=== PATIENT | female | born 1960 | race Caucasian/White ===

== ENCOUNTER 2019-08-26 17:56 | Emergency (ER) | payer MEDICARE ==
[2019-08-26 18:19] VITALS: O2SAT 98
[2019-08-26] MEDS ORDERED: Sodium Chloride 0.9% 1000 ML 1,000 ML IV STA (18:54)
[2019-08-26] MEDS ORDERED: BENADRYL 50 MG/ML IV ONE (18:54)
[2019-08-26] MEDS ORDERED: MORPHINE SULFATE 2 MG INJ IV ONE (18:54)
[2019-08-26] MEDS ORDERED: BENADRYL 50 MG/ML ONE (19:23)
[2019-08-26] MEDS ORDERED: Sodium Chloride 0.9% 1000 ML 1,000 ML ONE (19:23)
[2019-08-26] MEDS ORDERED: MORPHINE SULFATE 2 MG INJ ONE (19:23)
[2019-08-26] MEDS ORDERED: DUONEB 0.5-3 MG/3 ml Neb IH ONE ×2 (19:30→20:57)
--- NOTE | 2019-08-26 19:31 | ERPHSYRPT ---
- History of Present Illness Historian: patient Exam Limitations: no limitations Patient Subjective Stated Complaint: pt co n/v/d for 11 days, fever a week ago but none now, cough,achy . seen on friday and was given antibotics. vomited last night, none today Triage Nursing Assessment: pt alert, waked in, resp easy, skin w/d/p. no edema Timing/Duration: day(s) (11) Activities at Onset: none Quality: aching Abdominal Pain Onset Location: generalized abdomen Pain Radiation: no radiation Severity of Pain-Max: mild Severity of Pain-Current: mild Modifying Factors: Worsens With: coughing, vomiting Associated Symptoms: nausea, vomiting, No back, No chest pain, No diaphoresis, No diarrhea, No fever/chills, No fatigue, No headache, No heartburn, No loss of appetite, No neck pain, No rash, No shortness of breath, No syncope, No weakness Previous symptoms: no prior history, no recent treatment Hx Tetanus, Diphtheria Vaccination/Date Given: (unknown) Hx Influenza Vaccination/Date Given: No Hx Pneumococcal Vaccination/Date Given: No Immunizations Up to Date: Yes <ALLISON YOUNG - Last Filed: 08/26/19 20:11> <TEJA CODY - Last Filed: 08/26/19 21:12> - History of Present Illness Time Seen by Provider: 08/26/19 18:45 Physician History: Patient has not felt well for 11 days, with symptoms beginning with cough and myalgias, then a few days ago with nausea and vomiting. (ALLISON YOUNG) Allergies/Adverse Reactions: No Known Drug Allergies Allergy (Verified 08/26/19 18:18) Home Medications: Zolpidem Tartrate 10 mg [Ambien 10 MG] 10 mg PO HS 11/14/12 [History] Alprazolam 0.5 mg [xanAX 0.5 MG] 0.5 mg BID 08/26/19 [History] Citalopram Hydrobromide [Citalopram HBr] 1 ea DAILY 08/26/19 [History] Hydrocodone/Acetaminophen [Lorcet Hd 10-325 mg Tablet] 1 ea QID 08/26/19 [ History] - Review of Systems Constitutional: Fatigue, No Fever, No Chills Eyes: No Symptoms Ears, Nose, & Throat: No Symptoms Respiratory: Cough, No Dyspnea Cardiac: No Chest Pain, No Edema, No Syncope Abdominal/Gastrointestinal: Abdominal Pain, Nausea, Vomiting, No Diarrhea Genitourinary Symptoms: No Dysuria Musculoskeletal: Myalgias, No Back Pain, No Neck Pain Skin: No Rash Neurological: No Dizziness, No Focal Weakness, No Sensory Changes Psychological: No Symptoms Endocrine: No Symptoms All Other Systems: Reviewed and Negative <ALLISON YOUNG - Last Filed: 08/26/19 20:11> - Past Medical History Pertinent Past Medical History: Yes Neurological History: Other ENT History: No Pertinent History Cardiac History: No Pertinent History Respiratory History: No Pertinent History Endocrine Medical History: Hyperthyroidism, Hypothyroidism Musculoskeletal History: Fibromyalgia GI Medical History: Irritable Bowel, Other History: No Pertinent History Psycho-Social History: Depression Female Reproductive Disorders: Abnormal Uterine Bleeding Other Medical History: lymes disease 2008,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 - Past Surgical History Past Surgical History: No Neuro Surgical History: No Pertinent History Cardiac: No Pertinent History Respiratory: No Pertinent History Gastrointestinal: Appendectomy Musculoskeletal: No Pertinent History Female Surgical History: Tubal Ligation, Other Other Surgical History: egd coolonsocopy - Social History Smoking Status: Former smoker Exposure to second hand smoke: No Drug Use: none Patient Lives Alone: No - Female History Hx Last Menstrual Period: post Hx Now: No (N) <ALLISON YOUNG - Last Filed: 08/26/19 20:11> - Physical Exam General Appearance: no apparent distress, alert Eye Exam: PERRL/EOMI, eyes nml inspection Ears, Nose, Throat Exam: normal ENT inspection, pharynx normal, moist mucous membranes Neck Exam: normal inspection, non-tender, supple, full range of motion, No meningismus, No Brudzinski, No Kernig's Respiratory Exam: normal breath sounds, lungs clear, airway intact, wheezing, No respiratory distress, No diminished breath sounds, No accessory muscle use Cardiovascular Exam: regular rate/rhythm, normal heart sounds, normal peripheral pulses Gastrointestinal/Abdomen Exam: soft, No tenderness, No mass Back Exam: normal inspection, normal range of motion, No CVA tenderness, No vertebral tenderness Extremity Exam: normal inspection, normal range of motion, pelvis stable Neurologic Exam: alert, oriented x 3, cooperative, normal mood/affect, nml cerebellar function, sensation nml, No motor deficits Skin Exam: normal color, warm, dry SpO2: 98 <ALLISON YOUNG YUSUF - Last Filed: 08/26/19 20:11> - Nursing Vital Signs Nursing Vital Signs: Initial Vital Signs Temperature 98.1 F 08/26/19 18:12 Pulse Rate 81 08/26/19 18:12 Respiratory Rate 16 08/26/19 18:12 Blood Pressure 156/97 08/26/19 18:12 O2 Sat by Pulse Oximetry 98 08/26/19 18:12 Pain Scale Pain Intensity 5 Ordered Tests: Active Orders 24 hr Category Date Time Status IV Insertion STAT Care 08/26/19 18:54 Active ABDOMEN AND PELVIS W/0 CONTRAS [CT] Stat Exams 08/26/19 18:55 Taken CHEST 1 VIEW (PORTABLE) Routine Exams 08/26/19 19:58 Taken AMYLASE Stat Lab 08/26/19 19:43 Completed CBC W DIFF Stat Lab 08/26/19 19:43 Completed CMP Stat Lab 08/26/19 19:43 Completed CULTURE,URINE Stat Lab 08/26/19 Received LIPASE Stat Lab 08/26/19 19:43 Completed Lactic Acid Stat Lab 08/26/19 18:54 Ordered PROTIME WITH INR Stat Lab 08/26/19 19:43 Completed UA W/RFX UR CULTURE Stat Lab 08/26/19 Completed Peak Expiratory Flow Rate ONCE RT 08/26/19 21:08 Active Respiratory Therapy Assessment DAILY RT 08/26/19 21:07 Active Medication Summary Generic Name Dose Route Start Last Admin Trade Name Freq PRN Reason Stop Dose Admin Potassium Chloride 40 meq 08/27/19 10:00 Potassium Chl 40 Meq/30 Ml Oral Solution PO 09/26/19 09:59 DAILY OSCAR Discontinued Medications Generic Name Dose Route Start Last Admin Trade Name Freq PRN Reason Stop Dose Admin Albuterol/Ipratropium 3 ml 08/26/19 19:30 08/26/19 21:01 Duoneb 0.5-3 Mg/3 Ml Neb IH 08/26/19 19:31 3 ml STAT ONE Administration Albuterol/Ipratropium Confirm 08/26/19 20:57 Duoneb 0.5-3 Mg/3 Ml Neb Administered 08/26/19 20:58 Dose 3 ml IH .STK-MED ONE Diphenhydramine HCl 25 mg 08/26/19 18:54 08/26/19 19:45 Benadryl 50 Mg/Ml IV 08/26/19 18:55 25 mg STAT ONE Administration Diphenhydramine HCl Confirm 08/26/19 19:23 Benadryl 50 Mg/Ml Administered 08/26/19 19:24 Dose 50 mg .ROUTE .STK-MED ONE Sodium Chloride 1,000 mls @ 999 mls/hr 08/26/19 18:54 08/26/19 19:29 Sodium Chloride 0.9% 1000 Ml IV 08/26/19 19:54 999 mls/hr .Q1H1M STA Administration Sodium Chloride Confirm 08/26/19 19:23 Sodium Chloride 0.9% 1000 Ml Administered 08/26/19 19:24 Dose 1,000 mls @ ud .ROUTE .STK-MED ONE Morphine Sulfate 2 mg 08/26/19 18:54 08/26/19 19:29 Morphine Sulfate 2 Mg Inj IV 08/26/19 18:55 2 mg STAT ONE Administration Morphine Sulfate Confirm 08/26/19 19:23 Morphine Sulfate 2 Mg Inj Administered 08/26/19 19:24 Dose 2 mg .ROUTE .STK-MED ONE Lab/Rad Data: Laboratory Result Diagrams 08/26/19 19:43 08/26/19 19:43 Laboratory Results 08/26/19 08/26/19 08/26/19 Range/Units Unknown 19:43 19:43 WBC (4.0-10.5) K/mm3 RBC (4.1-5.4) M/mm3 Hgb (12.0-16.0) gm/dl Hct (35-47) % MCV (78-100) fl MCH (26-32) pg MCHC (32-36) g/dl RDW (11.5-14.0) % Plt Count (150-450) K/mm3 MPV (6-9.5) fl Gran % (36.0-66.0) % Eos # (Auto) (0-0.5) Absolute Lymphs (auto) (1.0-4.6) Absolute Monos (auto) (0.0-1.3) Lymphocytes % (24.0-44.0) % Monocytes % (0.0-12.0) % Eosinophils % (0.00-5.0) % Basophils % (0.0-0.4) % Absolute Granulocytes (1.4-6.9) Basophils # (0-0.4) PT 12.9 H (9.95-12.35) SECONDS INR 1.14 (0.8-3.0) Sodium 144 (137-145) mmol/L Potassium 3.3 L (3.5-5.1) mmol/L Chloride 113 H (98-107) mmol/L Carbon Dioxide 22 (22-30) mmol/L Anion Gap 13.0 (5-15) MEQ/L BUN 13 (7-17) mg/dL Creatinine 0.65 (0.52-1.04) mg/dL Estimated GFR > 60.0 ML/MIN Glucose 93 (74-106) mg/dL Calcium 9.5 (8.4-10.2) mg/dL Total Bilirubin 0.60 (0.2-1.3) mg/dL AST 25 (14-36) U/L ALT 18 (0-35) U/L Alkaline Phosphatase 58 (38-126) U/L Serum Total Protein 8.2 (6.3-8.2) g/dL Albumin 4.7 (3.5-5.0) g/dL Amylase 76 (30-110) U/L Lipase 125 (23-300) U/L Urine Color YELLOW (YELLOW) Urine Appearance SLIGHTLY CLOUDY (CLEAR) Urine pH 5.0 (5-6) Ur Specific [place] 1.027 (1.005-1.025) Urine Protein NEGATIVE (Negative) Urine Ketones TRACE (NEGATIVE) Urine Blood SMALL (0-5) Rao/ul Urine Nitrite NEGATIVE (NEGATIVE) Urine Bilirubin NEGATIVE (NEGATIVE) Urine Urobilinogen NEGATIVE (0-1) mg/dL Ur Leukocyte Esterase NEGATIVE (NEGATIVE) Urine WBC (Auto) 0-2 (0-5) /HPF Urine RBC (Auto) 0-2 (0-2) /HPF U Epithel Cells (Auto) RARE (FEW) /HPF Urine Bacteria (Auto) NONE (NEGATIVE) /HPF Amorphous Crystals FEW (NEGATIVE) /HPF Urine Mucus (Auto) SLIGHT (NEGATIVE) /HPF Urine Culture Reflexed YES (NO) Urine Glucose NEGATIVE (NEGATIVE) mg/dL 08/26/19 Range/Units 19:43 WBC 4.5 (4.0-10.5) K/mm3 RBC 4.40 (4.1-5.4) M/mm3 Hgb 13.2 (12.0-16.0) gm/dl Hct 40.5 (35-47) % MCV 92.0 (78-100) fl MCH 30.0 (26-32) pg MCHC 32.6 (32-36) g/dl RDW 13.6 (11.5-14.0) % Plt Count 274 (150-450) K/mm3 MPV 10.7 H (6-9.5) fl Gran % 56.3 (36.0-66.0) % Eos # (Auto) 0.03 (0-0.5) Absolute Lymphs (auto) 1.57 (1.0-4.6) Absolute Monos (auto) 0.34 (0.0-1.3) Lymphocytes % 35.0 (24.0-44.0) % Monocytes % 7.6 (0.0-12.0) % Eosinophils % 0.7 (0.00-5.0) % Basophils % 0.4 (0.0-0.4) % Absolute Granulocytes 2.52 (1.4-6.9) Basophils # 0.02 (0-0.4) PT (9.95-12.35) SECONDS INR (0.8-3.0) Sodium (137-145) mmol/L Potassium (3.5-5.1) mmol/L Chloride (98-107) mmol/L Carbon Dioxide (22-30) mmol/L Anion Gap (5-15) MEQ/L BUN (7-17) mg/dL Creatinine (0.52-1.04) mg/dL Estimated GFR ML/MIN Glucose (74-106) mg/dL Calcium (8.4-10.2) mg/dL Total Bilirubin (0.2-1.3) mg/dL AST (14-36) U/L ALT (0-35) U/L Alkaline Phosphatase (38-126) U/L Serum Total Protein (6.3-8.2) g/dL Albumin (3.5-5.0) g/dL Amylase (30-110) U/L Lipase (23-300) U/L Urine Color (YELLOW) Urine Appearance (CLEAR) Urine pH (5-6) Ur Specific [place] (1.005-1.025) Urine Protein (Negative) Urine Ketones (NEGATIVE) Urine Blood (0-5) Rao/ul Urine Nitrite (NEGATIVE) Urine Bilirubin (NEGATIVE) Urine Urobilinogen (0-1) mg/dL Ur Leukocyte Esterase (NEGATIVE) Urine WBC (Auto) (0-5) /HPF Urine RBC (Auto) (0-2) /HPF U Epithel Cells (Auto) (FEW) /HPF Urine Bacteria (Auto) (NEGATIVE) /HPF Amorphous Crystals (NEGATIVE) /HPF Urine Mucus (Auto) (NEGATIVE) /HPF Urine Culture Reflexed (NO) Urine Glucose (NEGATIVE) mg/dL - Progress Progress: improved Counseled pt/family regarding: lab results, diagnosis, need for follow-up, rad results (xray chest no obvious infiltrates noted. CT abd pelvis shows small stable hiatal hernia. no other acute abn. basic labs unremarkable exacept K+ of 3.3. replenished. NS bolus, duoneb tt. pt better, sending her home on prednisone and albuterol. advised if any discrepancy in xray reading, somebody should contact her tomorrow. pt and voiced understanding) <TEJA CODY - Last Filed: 08/26/19 21:12> - Progress Progress Note: Discussed the patient with Dr Teja Cody, [facility] emergency department attending. Care was transferred to Dr Cody and Dr Cody will determine final disposition of the patient. (ALLISON YOUNG) <ALLISON YOUNG - Last Filed: 08/26/19 20:11> - Departure Departure Disposition: Home Critical Care Time: No <TEJA CODY - Last Filed: 08/26/19 21:12> - Departure Clinical Impression: Cough in adult, Elevated blood pressure reading without diagnosis of hypertension, Nausea and vomiting in adult Condition: Fair Referrals: PACO MARTIN [Primary Care Provider] - Prescriptions: Albuterol Sulfate [Ventolin Hfa] 18 gm IH Q4-6HPRN PRN #1 [email or web address] PRN Reason: Shortness Of Breath Prednisone 20 mg [Deltasone 20 mg] 40 mg PO DAILY #6 tablet
[2019-08-26 19:46] LABS: Absolute Neutrophil Ct (ANC) 2.52 (1.4-6.9); BASOPHIL % 0.4 % (0.0-0.4); Basophil (Absolute #) 0.02 (0-0.4); Eosinophil % 0.7 % (0.00-5.0); Eosinophil (Absolute #) 0.03 (0-0.5); Hematocrit 40.5 % (35-47); Hemoglobin 13.2 gm/dl (12.0-16.0); Lymphocyte (Absolute #) 1.57 (1.0-4.6); Mean Corpuscular Hgb Concent. 32.6 g/dl (32-36); Mean Platelet Volume 10.7 fl (6-9.5); Monocyte (Absolute #) 0.34 (0.0-1.3); Monocytes % 7.6 % (0.0-12.0); Neutrophil % 56.3 % (36.0-66.0); Platelet Count 274 K/mm3 (150-450); Red Cell Distribution Width 13.6 % (11.5-14.0); White Blood Count 4.5 K/mm3 (4.0-10.5)
[2019-08-26 19:47] LABS: Amourphous Crystal FEW /HPF (NEGATIVE); Appearance SLIGHTLY CLOUDY (CLEAR); Bilirubin NEGATIVE (NEGATIVE); Blood SMALL Ery/ul (0-5); Epithelial Cells RARE /HPF (FEW); Glucose NEGATIVE (NEGATIVE); Ketones TRACE (NEGATIVE); Leukocyte Esterase NEGATIVE (NEGATIVE); Mucus SLIGHT /HPF (NEGATIVE); Nitrite NEGATIVE (NEGATIVE); Protein,Urine Dip NEGATIVE (Negative); RBC 0-2 /HPF (0-2); Specific Gravity 1.027 (1.005-1.025); Urobilinogen NEGATIVE mg/dL (0-1); WBC 0-2 /HPF (0-5)
[2019-08-26 20:15] LABS: INR 1.14 (0.8-3.0); PROTIME 12.9 SECONDS (9.95-12.35)
[2019-08-26 20:20] LABS: ALBUMIN 4.7 g/dL (3.5-5.0); ALKALINE PHOSPHATASE 58 U/L (38-126); AMYLASE 76 U/L (30-110); BLOOD UREA NITROGEN 13 mg/dL (7-17); CHLORIDE 113 mmol/L (98-107); Calcium 9.5 mg/dL (8.4-10.2); Carbon Dioxide 22 mmol/L (22-30); Creatinine 1 0.65 mg/dL (0.52-1.04); Glucose 93 mg/dL (74-106); LIPASE 125 U/L (23-300); Potassium 3.3 mmol/L (3.5-5.1); SGOT/AST 25 U/L (14-36); SGPT/ALT 18 U/L (0-35); SODIUM 144 mmol/L (137-145); Total Protein 8.2 g/dL (6.3-8.2)
[2019-08-26] MEDS ORDERED: Klor Con 10 MEQ PO ONE ×2 (21:45→21:47)
[2019-08-26 22:04] VITALS: BP 140/70; PULSE 101
--- NOTE | 2019-08-27 08:49 | XRAY ---
Indication: Nausea, vomiting, and diarrhea for 2 days. Multiple contiguous axial images obtained through the abdomen and pelvis without contrast as ordered. Comparison: December 04, 2012. Lung bases demonstrates new bibasilar fibrosis/scarring. Stable medial right posterior guarded calcified granuloma. No infiltrate or effusion. Heart is not enlarged. Stable small hiatal hernia. Noncontrasted stomach and bowel loops appear nonobstructed. Previous appendectomy reported. No free fluid/air. Remaining liver, gallbladder, pancreas, spleen, adrenal glands, kidneys, ureters, bladder, uterus, and aorta appear unremarkable for noncontrast exam. Osseous structures intact. Impression: 1. Stable small hiatal hernia. 2. No new or acute intra-abdominal/pelvic abnormalities on this noncontrast exam.
--- NOTE | 2019-08-27 08:59 | XRAY ---
Indication: Fever and cough. Comparison: December 03, at 2013. Portable chest again demonstrates minimal bibasilar fibrosis/scarring. No focal infiltrate, consolidation, or large effusion. Heart and mediastinal structures within normal limits. Bony thorax intact. Impression: Nonacute chest with chronic feature.
[2019-08-27] MEDS ORDERED: POTASSIUM CHL 40 MEQ/30 ML ORAL SOLUTION PO SCH (10:00)
== END 2019-08-26 22:04 | disposition home or self-care (01) ==
LOC: ED 17:56
DX: R05 Cough (principal); R03.0 Elevated blood-pressure reading, without diagnosis of hypertension; R11.2 Nausea with vomiting, unspecified
CPT/HCPCS: 36000; 36415; 71045; 74176; 80053; 81001; 82150; 83605; 83690; 85025; 85610; 87086; 94150; 94640; 96360; 96374; 96375; 99284; J1200; J2270; A9270-GY

== ENCOUNTER 2024-03-29 09:59 | Day surgery (SDC) | payer MEDICARE, OTHER ==
--- NOTE | 2024-03-29 08:43 | HP ---
HISTORY AND PHYSICAL HISTORY OF PRESENT ILLNESS: The patient had some pain upper and lower abdomen, increased urination. UTI was negative. CT scan area of splenic flexure, question whether narrowing or not. PAST MEDICAL HISTORY: Fibromyalgia, hypertension, history of bronchitis in the past, history of IBS. HOME MEDICATIONS: Zofran, Adipex, hydroxyzine, hydrocodone 10/acetaminophen 325 tablets. She has also been on Ambien. ALLERGIES: Zoloft. PAST SURGICAL HISTORY: She had tubal in the past, EGD and colonoscopy in the past, had knee arthroscopy in the past. SOCIAL HISTORY: No smoking. No alcohol abuse. FAMILY HISTORY: Cancer but negative for colon cancer. REVIEW OF SYSTEMS: Twelve systems reviewed. No chest pain or palpitations. Other systems negative or noncontributory as above and per preadmission questionnaire. PHYSICAL EXAMINATION: GENERAL: Height 5 feet 3 inches. BMI 26.22. GENERAL: No acute distress. HEENT: Sclerae nonicteric. Extraocular movements intact. NECK: No JVD. CHEST: Equal excursion, nonlabored breathing. CARDIOVASCULAR: Regular rate and rhythm. ABDOMEN: Soft, nontender on office visit today. EXTREMITIES: No cyanosis or edema. NEUROLOGIC: Alert and oriented, moving all extremities symmetrically. PSYCHIATRIC: Appropriate mood and affect. SKIN: Dry. RECTAL: Deferred until the time of endoscopy. IMPRESSION: Questionable splenic flexure lesion or narrowing. Needs colonoscopy for evaluation. Risks explained in detail including but not limited to bleeding or infection, risk of bowel injury or perforation, risk of missed or nondiagnosis, risk of incomplete exam possibly requiring barium enema or possible need for other such procedures, general risk of anesthesia or sedation, risk of bowel prep but not limited to. Consent obtained. We will proceed with outpatient colonoscopy under MAC anesthesia. Continue medications for fibromyalgia, hypertension, and IBS.
[2024-03-29] MEDS ORDERED: Lactated Ringers 1,000 ML IV ONE (10:06)
[2024-03-29] MEDS: Lactated Ringers 1,000 ML IV SCH (10:07)
[2024-03-29 10:38] VITALS: RESP 18
[2024-03-29] MEDS ORDERED: DIPRIVAN 200 MG/20 ML IV ONE ×2 (12:06→12:21)
[2024-03-29 13:33] VITALS: BP 115/74; PULSE 69; TEMP 97.6; O2SAT 99
--- NOTE | 2024-04-01 07:10 | OP ---
SURGERY DATE/TIME: 03/29/2024 [id number] PREOPERATIVE DIAGNOSIS: She had abnormal CT scan and question annular narrowing in the area of splenic flexure and on CT scan. POSTOPERATIVE DIAGNOSES: 1) No obvious intrinsic or constricting colon masses. 2) Colon polyps of sigmoid colon, rectum, and transverse colon. 3) Limited bowel prep. 4) ASA class 2. 5) Withdrawal time was approximately 11 minutes. PROCEDURES: 1) Colonoscopy to terminal ileum. 2) Retrograde ileoscopy. 3) Hot snare polypectomy, transverse colon polyp near splenic flexure. 4) Cold biopsy, sigmoid colon early polyp versus hyperplastic lesion. 5) Hot biopsy polypectomy, small early polyps versus hyperplastic lesion in the rectum x2. SURGEON: Selvin Thompson MD ANESTHESIA: General. DESCRIPTION OF PROCEDURE AND FINDINGS: Patient was taken to the endoscopy room. MAC anesthesia induced after official time-out for planned procedure. Digital rectal exam did not reveal any rectal masses. Videocolonoscope inserted and passed up the slightly tortuous sigmoid, descending colon, and around the splenic flexure. There were no obvious intraluminal constricting masses. Scope was able to be passed down the transverse colon, ascending colon, and cecum. Appendiceal orifice was not well visualized. Scope was passed up the terminal ileum. Retrograde ileoscopy was performed which was unremarkable. No signs of any inflammatory bowel disease. Scope was then carefully withdrawn over the next 11 or 12 minutes. Prep overall was fair on the limited side. A large amount of liquidy stool limited the exam for very small lesions. Suctioned and irrigated as clear as possible but limited exam for very small lesions. There were no signs of any large polyps, masses, or obstructing lesions. There was a 3.5 to 4 mm polyp in the distal transverse colon. On palpation, seemed to be close to the splenic flexure area. It was removed with hot snare polypectomy and brief bursts of cautery. The staff said it was retrieved. The scope was then pulled around. Very small early polyp versus hyperplastic lesion in the sigmoid colon was removed with cold biopsy forceps. Good hemostasis noted. Scope pulled back to rectum. Two smaller early polyps versus hyperplastic lesion removed within the proximal rectum with hot biopsy polypectomy. Good hemostasis noted. Patient tolerated the procedure well. There were no immediate complications.
== END 2024-03-29 13:32 | disposition home or self-care (01) ==
LOC: SDC 09:59
PROVIDERS: ATTEND Surgery
DX: D12.3 Benign neoplasm of transverse colon (principal); D12.7 Benign neoplasm of rectosigmoid junction; D12.5 Benign neoplasm of sigmoid colon; R93.3 Abnormal findings on diagnostic imaging of other parts of digestive tract
CPT/HCPCS: J2704